=== PATIENT | female | born 1950 | race African-American/Black ===

== ENCOUNTER 2017-04-05 15:59 | Emergency (ER) | payer MEDICARE ==
[2017-04-05] MEDS ORDERED: RIVAROXABAN 15 MG TABLET PO ONE ×2 (16:43→18:22)
--- NOTE | 2017-04-05 16:44 | ER Document Report ---
ED Medical Screen (RME) - General Chief Complaint: Chest Pain > 30 Stated Complaint: CHEST PAIN Time Seen by Provider: 04/05/17 16:41 Notes: Patient presents with chest pain and shortness of breath. She states she has been unable to afford her Xarelto for the last 2 weeks. 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 She also states that she has chronic A. fib. TRAVEL OUTSIDE OF THE [place] IN LAST 30 DAYS: No - Related Data Allergies/Adverse Reactions: Sulfa (Sulfonamide Antibiotics) Allergy (Verified 04/05/17 16:01) Past Medical History - Past Medical History Cardiac Medical History: Reports: Hx Atrial Fibrillation Renal/ Medical History: Denies: Hx Peritoneal Dialysis Physical Exam - Vital signs Vitals: Temp Pulse Resp BP Pulse Ox 98.1 F 66 16 158/74 H 96 04/05/17 16:21 04/05/17 16:21 04/05/17 16:21 04/05/17 16:21 04/05/17 16:21 Course - Vital Signs Vital signs: Temp Pulse Resp BP Pulse Ox 98.1 F 66 16 158/74 H 96 04/05/17 16:21 04/05/17 16:21 04/05/17 16:21 04/05/17 16:21 04/05/17 16:21
[2017-04-05 17:53] LABS: HEMATOCRIT 45.1 % (36.0-47.0); HGB HCT DIFFERENCE -0.1; MEAN CORPUSCULAR HEMOGLOBIN 29.8 pg (27.0-33.4); MEAN CORPUSCULAR HGB CONC 33.2 g/dL (32.0-36.0); MEAN CORPUSCULAR VOLUME 90 fl (80-97); RED BLOOD COUNT 5.02 10^6/uL (3.72-5.28); WHITE BLOOD COUNT 11.5 10^3/uL (4.0-10.5)
[2017-04-05 18:19] LABS: ABSOLUTE EOSINOPHILS# (MANUAL) 0.2 10^3/uL (0.0-0.6); BASOPHILS % (MANUAL) 0 % (0-2); EOSINOPHILS % (MANUAL) 2 % (0-6); LYMPHOCYTES % (MANUAL) 23 % (13-45); TOTAL CELLS COUNTED 100
[2017-04-05 18:45] LABS: OVALOCYTES SLIGHT
[2017-04-05 18:46] LABS: ACANTHOCYTES 2+; TEAR DROP CELLS SLIGHT
--- NOTE | 2017-04-05 18:50 | ER Document Report ---
ED General - General Chief Complaint: Chest Pain > 30 Stated Complaint: CHEST PAIN Time Seen by Provider: 04/05/17 16:41 Notes: Patient is a 67-year-old female with a past medical history of hypertension, A. fib, and prior pulmonary embolus who is supposed to be anticoagulated on Xarelto but has been off medication for 2 weeks due to inability to pay the coinsurance for this medication who presents with an episode of chest pain that occurred several hours prior to arrival. Patient describes it as a pressure- like sensation in the left side of her chest that radiated into her left neck. The pain lasted for approximately 2 minutes and then spontaneously resolved. She denies any associated nausea, vomiting, diaphoresis but states that at the time she had some mild shortness of breath. She denies any prior history of cardiac disease or known coronary artery disease. She has not seen her primary doctor regarding today's concerns. She denies any discomfort at the time of my assessment. TRAVEL OUTSIDE OF THE [place] IN LAST 30 DAYS: No - Related Data Allergies/Adverse Reactions: Sulfa (Sulfonamide Antibiotics) Allergy (Verified 04/05/17 16:01) Past Medical History - General Information source: Patient - Social History Smoking Status: Never Smoker Frequency of alcohol use: None Drug Abuse: None Lives with: Family Family History: Reviewed & Not Pertinent Patient has suicidal ideation: No Patient has homicidal ideation: No - Past Medical History Cardiac Medical History: Reports: Hx Atrial Fibrillation Renal/ Medical History: Denies: Hx Peritoneal Dialysis Review of Systems - Review of Systems Notes: Constitutional: Negative for fever. HENT: Negative for sore throat. Eyes: Negative for visual changes. Cardiovascular: Positive for chest pain. Respiratory: Positive for shortness of breath. Gastrointestinal: Negative for abdominal pain, vomiting or diarrhea. Genitourinary: Negative for dysuria. Musculoskeletal: Negative for back pain. Skin: Negative for rash. Neurological: Negative for headaches, weakness or numbness. 10 point ROS negative except as marked above and in HPI. Physical Exam - Vital signs Vitals: Temp Pulse Resp BP Pulse Ox 98.1 F 66 16 158/74 H 96 04/05/17 16:21 04/05/17 16:21 04/05/17 16:21 04/05/17 16:21 04/05/17 16:21 Interpretation: Normal Notes: PHYSICAL EXAMINATION: GENERAL: Well-appearing, well-nourished and in no acute distress. HEAD: Atraumatic, normocephalic. EYES: Pupils equal round and reactive to light, extraocular movements intact, sclera anicteric, conjunctiva are normal. ENT: nares patent, oropharynx clear without exudates. Moist mucous membranes. NECK: Normal range of motion, supple without lymphadenopathy LUNGS: Breath sounds clear to auscultation bilaterally and equal. No wheezes rales or rhonchi. HEART: Regular rate and rhythm without murmurs ABDOMEN: Soft, nontender, normoactive bowel sounds. No guarding, no rebound. No masses appreciated. EXTREMITIES: Normal range of motion, no pitting or edema. No cyanosis. NEUROLOGICAL: No focal neurological deficits. Moves all extremities spontaneously and on command. PSYCH: Normal mood, normal affect. SKIN: Warm, Dry, normal turgor, no rashes or lesions noted. Course - Re-evaluation Re-evalutation: 04/05/17 18:48 Presentation of chest pain in an otherwise well appearing patient. Low clinical suspicion for ACS given clinical history, exam, EKG without ST elevations or depressions, and negative initial troponin. Chest pain lasted less than 2 minutes and then spontaneously resolved. Patient is chest pain-free at time of assessment has not had chest pain in approximately 6 hours. PE is on the differential given the patient does have a history of this and is unfortunately off of her Xarelto due to the cost of this medication for the past 2 weeks. I have restarted her Xarelto here and I do not believe obtaining a CT is indicated because regardless of whether or not the patient has a PE she requires anticoagulation and is otherwise hemodynamically stable. I also consulted social work to assist the patient in getting her medications. CXR without evidence of pneumothorax or pneumonia. No widened mediastinum. Aortic dissection also seems unlikely given history, symmetric pulses, CXR, and vitals. At this time will discharge with return precautions and follow-up recommendations. Verbal discharge instructions given a the bedside and opportunity for questions given. Medication warnings reviewed. Patient is in agreement with this plan and has verbalized understanding of return precautions and the need for primary care follow-up in the next 24-72 hours. - Vital Signs Vital signs: Temp Pulse Resp BP Pulse Ox 97.6 F 66 18 144/84 H 96 04/05/17 19:27 04/05/17 19:27 04/05/17 19:27 04/05/17 19:27 04/05/17 19:27 - Laboratory Result Diagrams: 04/05/17 17:28 04/05/17 18:20 Laboratory results interpreted by me: 04/05/17 04/05/17 17:28 18:20 WBC 11.5 H Carbon Dioxide 33 H BUN 30 H Creatinine 1.39 H Est GFR ( Amer) 46 L Est GFR (Non-Af Amer) 38 L - Diagnostic Test Radiology reviewed: Image reviewed, Reports reviewed Radiology results interpreted by me: 04/05/17 19:49 Chest x-ray: No acute infiltrate or pneumothorax - EKG Interpretation by Me Additional EKG results interpreted by me: 04/05/17 19:49 Sinus rhythm. Rate 70. No ST elevations or depressions. No evidence of right heart strain. QTC is 450. Discharge - Discharge Clinical Impression: Chest discomfort, History of venous thromboembolism, Intermittent shortness of breath Condition: Good Disposition: HOME, SELF-CARE Additional Instructions: You were seen today for chest pain. The exact cause of your pain is unclear. However, based on your cardiac enzyme testing, chest x-ray, and EKG it does not appear that it is from an immediately life-threatening cause at this time. Although your testing here is normal is critical that you follow-up with your primary care physician for continued evaluation of this chest pain and possible stress testing. I recommended you see your physician within the next 24-48 hours to be evaluated for consideration of a stress test. Please return to emergency department immediately if you have worsening of your chest pain, shortness of breath, vomiting, become unable to exert yourself due to pain or difficulty breathing, you pass out, or have any pain that radiates into your arms, jaw, or back. Please also return if you have any additional symptoms that are concerning to you. Please follow-up with her social media intern regarding getting your Xarelto filled as you do need this medication to prevent recurrent pulmonary emboli as well as for your history of atrial fibrillation. Referrals: MAURICIO SANFORD MD [Primary Care Provider] - Follow up in 3-5 days
[2017-04-05] MEDS ORDERED: NORMAL SALINE 1000 ML 1,000 ML IV ONE (18:59)
[2017-04-05 19:10] LABS: ALANINE AMINOTRANSFERASE 50 U/L (9-52); ALBUMIN 4.3 g/dL (3.5-5.0); ALKALINE PHOSPHATASE 121 U/L (38-126); ANION GAP 12 (5-19); ASPARTATE AMINO TRANSFERASE 35 U/L (14-36); BILIRUBIN,DIRECT 0.3 mg/dL (0.0-0.4); BILIRUBIN,TOTAL 0.5 mg/dL (0.2-1.3); BLOOD UREA NITROGEN 30 mg/dL (7-20); CALCIUM 9.8 mg/dL (8.4-10.2); CARBON DIOXIDE 33 mmol/L (22-30); CHLORIDE 99 mmol/L (98-107); CREATININE RESULT 1.39 mg/dL (0.52-1.25); GLUCOSE 93 mg/dL (75-110); SODIUM 144.3 mmol/L (137-145); TOTAL PROTEIN 7.2 g/dL (6.3-8.2)
[2017-04-05 19:29] VITALS: BP 144/84
[2017-04-05] MEDS ORDERED: RIVAROXABAN 10 MG TABLET PO ONE (19:30)
--- NOTE | 2017-04-05 19:35 | EKG REPORT ---
SEVERITY:- ABNORMAL ECG - SINUS RHYTHM LEFT AXIS DEVIATION PROBABLE LEFT VENTRICULAR HYPERTROPHY : Confirmed by: Les Fortune MD 05-Apr-2017 19:35:18
--- NOTE | 2017-04-05 19:44 | RADIOLOGY REPORT (SQ) ---
EXAM DESCRIPTION: CHEST SINGLE VIEW COMPLETED DATE/TIME: 04/05/2017 7:09 pm REASON FOR STUDY: chest pain COMPARISON: None. NUMBER OF VIEWS: One view. TECHNIQUE: Single frontal radiographic view of the chest acquired. LIMITATIONS: None. FINDINGS: LUNGS AND PLEURA: No opacities, masses or pneumothorax. No pleural effusion. MEDIASTINUM AND HILAR STRUCTURES: No masses. Contour normal. HEART AND VASCULAR STRUCTURES: Heart enlarged without failure. Normal vasculature. BONES: No acute findings. HARDWARE: Hardware in the cervical spine. OTHER: No other significant finding. IMPRESSION: HEART ENLARGED WITHOUT FAILURE. NO OTHER SIGNIFICANT RADIOGRAPHIC FINDING IN THE CHEST. TECHNICAL DOCUMENTATION: JOB ID: [id number] [email or web address]- All Rights Reserved
== END 2017-04-05 20:08 | disposition home or self-care (01) ==
LOC: ER 15:59
DX: R07.89 Other chest pain (principal); R06.02 Shortness of breath; I48.91 Unspecified atrial fibrillation; T45.516A Underdosing of anticoagulants, initial encounter; Z91.120 Patient's intentional underdosing of medication regimen due to financial hardship; Z91.14 Patient's other noncompliance with medication regimen; Z86.711 Personal history of pulmonary embolism; Z88.2 Allergy status to sulfonamides
CPT/HCPCS: 93005; 99285; 96360; 36415; 85025; 80053; 84484; 71010; 93010; J7030; A9270

== ENCOUNTER 2017-06-17 12:04 | Emergency (ER) | payer MEDICARE ==
[2017-06-17] MEDS ORDERED: HYDROMORPHONE HCL INJ/PF 2 MG/ML AMPULE IV ONE ×2 (12:18→13:07)
--- NOTE | 2017-06-17 12:58 | RADIOLOGY REPORT (SQ) ---
EXAM DESCRIPTION: SHOULDER LEFT 2 OR MORE VIEWS COMPLETED DATE/TIME: 06/17/2017 12:47 pm REASON FOR STUDY: fall on concrete, pain COMPARISON: None. NUMBER OF VIEWS: Three views. TECHNIQUE: AP and Y view images acquired of the left shoulder. LIMITATIONS: None. FINDINGS: MINERALIZATION: Normal. BONES: There is a comminuted fracture of the proximal humerus at the level of the humeral neck and gr eater tuberosity. No other evidence for fracture is seen. JOINTS: No dislocation. VISUALIZED LUNGS AND RIBS: No pneumothorax. No rib fracture. SOFT TISSUES: No radiopaque foreign body. OTHER: No other significant finding. IMPRESSION: Comminuted fracture of the proximal humerus. TECHNICAL DOCUMENTATION: JOB ID: [id number] [employer]- All Rights Reserved Reading location - IP/workstation name: [email or web address]
--- NOTE | 2017-06-17 12:59 | RADIOLOGY REPORT (SQ) ---
EXAM DESCRIPTION: CHEST SINGLE VIEW COMPLETED DATE/TIME: 06/17/2017 12:47 pm REASON FOR STUDY: fall on concrete, pain COMPARISON: 04/05/2017 EXAM PARAMETERS: NUMBER OF VIEWS: One view. TECHNIQUE: Single frontal radiographic view of the chest acquired. RADIATION DOSE: NA LIMITATIONS: None. FINDINGS: LUNGS AND PLEURA: No opacities, masses or pneumothorax. No pleural effusion. MEDIASTINUM AND HILAR STRUCTURES: No masses. Contour normal. HEART AND VASCULAR STRUCTURES: Cardiac silhouette remains enlarged and is unchanged in configuration BONES: Previously described left shoulder fracture is incompletely visualized. HARDWARE: Orthopedic hardware is again identified in the cervical spine OTHER: No other significant finding. IMPRESSION: No acute consolidations or pleural effusions are identified. Cardiomegaly. Other findi ngs as noted above TECHNICAL DOCUMENTATION: JOB ID: [id number] [employer]- All Rights Reserved Reading location - IP/workstation name: [email or web address]
--- NOTE | 2017-06-17 13:22 | RADIOLOGY REPORT (SQ) ---
EXAM DESCRIPTION: CT CERVICAL SPINE WITHOUT COMPLETED DATE/TIME: 06/17/2017 12:57 pm REASON FOR STUDY: fall on concrete, pain COMPARISON: None. TECHNIQUE: Axial images acquired through the cervical spine without intravenous contrast. Images re viewed with lung, soft tissue and bone windows. Reconstructed coronal and sagittal MPR images review ed. Images stored on PACS. All CT scanners at this facility use dose modulation, iterative reconstruction, and/or weight based d osing when appropriate to reduce radiation dose to as low as reasonably achievable (ALARA). [facility]: Dose Right [facility]: CareDose [facility]: Dose Right [facility]: Teradose 4D [facility]: [employer] RADIATION DOSE: CT Rad equipment meets quality standard of care and radiation dose reduction techniq ues were employed. CTDIvol: 27.7 mGy. DLP: 688 mGy-cm. mGy. LIMITATIONS: Streak artifact from hardware C4-5 and 6 FINDINGS: ALIGNMENT: Anatomic. MINERALIZATION: Normal. VERTEBRAL BODIES: No obvious acute fracture identified. DISCS: Arthritic changes. FACETS, LATERAL MASSES, POSTERIOR ELEMENTS: Intact. Arthritic changes. HARDWARE: Intact anterior hardware bridging C4-5 and 6 VISUALIZED RIBS: No fractures. LUNG APICES AND SOFT TISSUES: No significant or acute findings. OTHER: No other significant finding. IMPRESSION: No acute fractures. Arthritic changes seen. Anterior Hardware bridges C4-5 and 6. TECHNICAL DOCUMENTATION: JOB ID: [id number] Quality ID # [id number]: Final reports with documentation of one or more dose reduction techniques (e.g., Au tomated exposure control, adjustment of the mA and/or kV according to patient size, use of iterative reconstruction technique) 2010 [employer]- All Rights Reserved Reading location - IP/workstation name: [email or web address]
--- NOTE | 2017-06-17 13:30 | ER Document Report ---
ED Trauma/MVC - General Chief Complaint: Fall Injury Stated Complaint: FALL SHOULDER AND RIB PAIN Time Seen by Provider: 06/17/17 12:13 Mode of Arrival: Medic Information source: Patient Notes: Patient is a 67-year-old female who presents to the ER today for left shoulder pain, chest pain after a fall at a gas station when she slipped on a rug leaving the gas station. Patient states that she landed on concrete directly onto the left shoulder. She denies any numbness or tingling at this time, she denies falling onto her chest at all. TRAVEL OUTSIDE OF THE [place] IN LAST 30 DAYS: No - Related Data Allergies/Adverse Reactions: Sulfa (Sulfonamide Antibiotics) Allergy (Verified 04/05/17 16:01) Past Medical History - General Information source: Patient - Social History Smoking Status: Unknown if Ever Smoked Family History: Reviewed & Not Pertinent - Past Medical History Cardiac Medical History: Reports: Hx Atrial Fibrillation Renal/ Medical History: Denies: Hx Peritoneal Dialysis Review of Systems - Review of Systems Constitutional: No symptoms reported EENT: No symptoms reported Cardiovascular: No symptoms reported Respiratory: No symptoms reported Gastrointestinal: No symptoms reported Genitourinary: No symptoms reported Female Genitourinary: No symptoms reported Musculoskeletal: See HPI Skin: No symptoms reported Hematologic/Lymphatic: No symptoms reported Neurological/Psychological: No symptoms reported Physical Exam - Vital signs Vitals: Temp Pulse Resp BP Pulse Ox 97.6 F 87 22 H 175/115 H 95 06/17/17 12:11 06/17/17 12:11 06/17/17 12:11 06/17/17 12:11 06/17/17 12:11 - Notes Notes: PHYSICAL EXAMINATION: GENERAL: Moaning and crying in pain, and mild acute distress. HEAD: Atraumatic, normocephalic. EYES: Pupils equal round and reactive to light, extraocular movements intact, sclera anicteric, conjunctiva are normal. NECK: Normal range of motion, supple without lymphadenopathy LUNGS: CTAB and equal. No wheezes rales or rhonchi. HEART: Chest tender to palpation, Regular rate and rhythm without murmurs ABDOMEN: Soft, no tenderness. No guarding, no rebound BACK: no vertebral tenderness, normal ROM GI/: no CVA tenderness EXTREMITIES: limited ROM to right arm at shoulder, tender to palpation over anterior/posterior shoulder, no pitting edema. No cyanosis. NEUROLOGICAL: Cranial nerves grossly intact. Normal sensory/motor exams. PSYCH: Normal mood, normal affect. SKIN: Warm, Dry, normal turgor, no rashes or lesions noted Course - Re-evaluation Re-evalutation: 06/17/17 16:03 Patient has a comminuted fracture of the proximal humerus on x-ray today. Chest x-ray, cervical spine CT negative for any acute pathology. 06/17/17 16:06 Attending and I do not appreciate fracture of humerus on x ray, but pt was placed in shoulder immobilizer and given orthopedic surgeon followup for first thing next business day. send home with pain medication. doing much better after dilaudid here. - Vital Signs Vital signs: Temp Pulse Resp BP Pulse Ox 97.5 F 63 17 151/66 H 100 06/17/17 14:02 06/17/17 14:02 06/17/17 14:02 06/17/17 14:02 06/17/17 14:02 Discharge - Discharge Clinical Impression: Proximal humeral fracture Qualifiers: Encounter type: initial encounter Fracture type: closed Fracture morphology: unspecified fracture morphology Laterality: left Qualified Code(s): S42.202A - Unspecified fracture of upper end of left humerus, initial encounter for closed fracture Condition: Stable Disposition: HOME, SELF-CARE Additional Instructions: Return immediately for any new or worsening symptoms. Follow up with orthopedic surgeon, call tomorrow to make followup appointment. Prescriptions: Oxycodone HCl/Acetaminophen [Percocet 5-325 mg Tablet] 1 - 2 tab PO Q4H PRN #25 tablet PRN Reason: Referrals: ELAINA SANFORD MD [Primary Care Provider] - Follow up as needed LAUREN DE JESUS DO [ACTIVE STAFF] - Follow up as needed
[2017-06-17 14:03] VITALS: BP 151/66
== END 2017-06-17 13:55 | disposition home or self-care (01) ==
LOC: ER 12:04
DX: S42.202A Unspecified fracture of upper end of left humerus, initial encounter for closed fracture (principal); M25.512 Pain in left shoulder; R07.81 Pleurodynia; W01.0XXA Fall on same level from slipping, tripping and stumbling without subsequent striking against object, initial encounter; Y92.524 Gas station as the place of occurrence of the external cause
CPT/HCPCS: 96376; 99284; 96374; 71045; 73030; 72125; J1170

== ENCOUNTER 2017-07-07 11:19 | Observation (INO) | payer MEDICARE ==
[2017-07-06 13:10] LABS: APPEARANCE,URINE CLEAR; BILIRUBIN,URINE NEGATIVE (NEGATIVE); COLOR,URINE STRAW; GLUCOSE, URINE NEGATIVE (NEGATIVE); KETONES,URINE NEGATIVE (NEGATIVE); LEUKOCYTE ESTERASE,URINE NEGATIVE (NEGATIVE); NITRITE,URINE NEGATIVE (NEGATIVE); PROTEIN,URINE NEGATIVE (NEGATIVE); URINE SPECIFIC GRAVITY 1.006; UROBILINOGEN,URINE NEGATIVE mg/dL (<2.0)
[2017-07-06 13:51] LABS: HEMATOCRIT 45.6 % (36.0-47.0); HEMOGLOBIN 14.8 g/dL (12.0-15.5); MEAN CORPUSCULAR HEMOGLOBIN 29.1 pg (27.0-33.4); MEAN CORPUSCULAR HGB CONC 32.5 g/dL (32.0-36.0); MEAN CORPUSCULAR VOLUME 90 fl (80-97); PLATELET COUNT 305 10^3/uL (150-450); RED BLOOD COUNT 5.08 10^6/uL (3.72-5.28); RED CELL DISTRIBUTION WIDTH 14.2 % (11.5-14.0); WHITE BLOOD COUNT 9.5 10^3/uL (4.0-10.5)
[2017-07-06 14:10] LABS: ANION GAP 13 (5-19); BLOOD UREA NITROGEN 33 mg/dL (7-20); CALCIUM 10.6 mg/dL (8.4-10.2); CARBON DIOXIDE 34 mmol/L (22-30); CHLORIDE 95 mmol/L (98-107); GLUCOSE 104 mg/dL (75-110); POTASSIUM 4.1 mmol/L (3.6-5.0); SODIUM 142.4 mmol/L (137-145)
[2017-07-06 14:20] LABS: ABSOLUTE MONOCYTES # (MANUAL) 0.8 10^3/uL (0.1-1.4); ABSOLUTE NEUTROPHILS# (MANUAL) 6.5 10^3/uL (1.7-8.2); BASOPHILS % (MANUAL) 1 % (0-2); EOSINOPHILS % (MANUAL) 2 % (0-6); LYMPHOCYTES % (MANUAL) 19 % (13-45); MONOCYTES % (MANUAL) 8 % (3-13); SEGMENTED NEUTROPHILS % (MAN) 68 % (42-78); TOTAL CELLS COUNTED 100
[2017-07-06 14:21] LABS: ANISOCYTOSIS SLIGHT; PLATELET CLUMPS PRESENT; TOXIC VACUOLATION PRESENT
[2017-07-06 14:23] LABS: OVALOCYTES SLIGHT; POIKILOCYTOSIS SLIGHT; POLYCHROMASIA SLIGHT; SCHISTOCYTES SLIGHT
--- NOTE | 2017-07-06 15:00 | RADIOLOGY REPORT (SQ) ---
EXAM DESCRIPTION: CHEST PA/LATERAL COMPLETED DATE/TIME: 07/06/2017 1:26 pm REASON FOR STUDY: PRE OP COMPARISON: AP chest 06/17/2017, 04/05/2017 EXAM PARAMETERS: NUMBER OF VIEWS: two views TECHNIQUE: Digital Frontal and Lateral radiographic views of the chest acquired. RADIATION DOSE: NA LIMITATIONS: none FINDINGS: LUNGS AND PLEURA: No opacities, masses or pneumothorax. No pleural effusion. MEDIASTINUM AND HILAR STRUCTURES: No masses or contour abnormalities. HEART AND VASCULAR STRUCTURES: Heart normal size. No evidence for failure. BONES: Osteopenic. No acute findings HARDWARE: Surgical clips left upper quadrant along the stomach fundus OTHER: No other significant finding. IMPRESSION: No acute findings TECHNICAL DOCUMENTATION: JOB ID: [id number] [email or web address]- All Rights Reserved Reading location - IP/workstation name: [email or web address]
--- NOTE | 2017-07-06 22:59 | EKG REPORT ---
SEVERITY:- ABNORMAL ECG - SINUS RHYTHM NONSPECIFIC INTRAVENTRICULAR CONDUCTION DELAY LEFT VENTRICULAR HYPERTROPHY : Confirmed by: Carolina Jaramillo 06-Jul-2017 22:58:10
[~2017-07-07 11:19] MED LIST: CEFAZOLIN 2 GM/D5W RTU 2 GM/50 ML RTUPB IV PRN
[2017-07-07] MEDS ORDERED: DEXAMETHASONE SOD PHOSPHATE INJ 4 MG/1 ML VIAL ONE (13:03)
[2017-07-07] MEDS ORDERED: ROCURONIUM BROMIDE INJ 50 MG/5 ML VIAL IV ONE (13:03)
[2017-07-07] MEDS ORDERED: SUCCINYLCHOLINE CHLORIDE INJ 200 MG/10 ML VIAL ONE (13:03)
[2017-07-07] MEDS ORDERED: ONDANSETRON HCL INJ/PF 4 MG/2 ML SDV ONE (13:03)
[2017-07-07] MEDS ORDERED: GLYCOPYRROLATE INJ 0.4 MG/2 ML VIAL ONE (13:03)
[2017-07-07] MEDS ORDERED: NEOSTIGMINE METHYLSULFATE 10 MG/10 ML VIAL ONE (13:03)
[2017-07-07] MEDS ORDERED: LIDOCAINE 2% INJ-PF (20 MG/ML) 2 ML AMPUL ONE (13:03)
[2017-07-07 14:42] LABS: INTERNATIONAL RATION (INR) 0.96; PARTIAL THROMBOPLASTIN TIME 22.3 SEC (23.5-35.8); PROTHROMBIN TIME 13.5 SEC (11.4-15.4)
[2017-07-07] MEDS ORDERED: FENTANYL CITRATE INJ/PF 100 MCG/2 ML AMPUL ONE (15:04)
[2017-07-07] MEDS ORDERED: MIDAZOLAM 2 MG/2 ML INJ ONE ×2 (15:04→18:29)
[2017-07-07] MEDS ORDERED: FENTANYL CITRATE INJ/PF 250 MCG/5 ML AMPULE ONE (15:04)
[2017-07-07] MEDS ORDERED: ACETAMINOPHEN 100 ML IV ONE (15:05)
[2017-07-07] MEDS ORDERED: PROPOFOL INJ 200 MG/20 ML VIAL IV ONE (15:05)
[2017-07-07] MEDS ORDERED: BUPIVACAINE HCL 0.5%-EPI 1:200000 INJ/PF 30 ML VIAL ONE (16:29)
[2017-07-07] MEDS ORDERED: MEPERIDINE HCL/PF INJ 25 MG/1 ML DISP.SYRIN IV PRN (16:54)
[2017-07-07] MEDS ORDERED: MORPHINE SULFATE 10 MG/ML INJ IV PRN (16:54)
[2017-07-07] MEDS ORDERED: DIPHENHYDRAMINE HCL 50 MG/ML VIAL IV PRN (16:54)
[2017-07-07] MEDS ORDERED: PROMETHAZINE HCL INJ 25 MG/1 ML VIAL IV PRN (16:54)
[2017-07-07] MEDS ORDERED: FENTANYL CITRATE INJ/PF 100 MCG/2 ML AMPUL IV PRN ×3 (16:54)
--- NOTE | 2017-07-07 18:26 | Operative Report ---
Operative Report DATE OF SURGERY: 07/07/17 PREOPERATIVE DIAGNOSIS: Left displaced proximal humerus fracture POSTOPERATIVE DIAGNOSIS: Same OPERATION: ORIF of left proximal humerus fracture SURGEON: BETTY WASHBURN ANESTHESIA: GA TISSUE REMOVED OR ALTERED: None COMPLICATIONS: None ESTIMATED BLOOD LOSS: 100 mL INTRAOPERATIVE FINDINGS: As above PROCEDURE: Patient was brought to the operating room and after being intubated was placed in a beachchair position. The left upper extremity was prepped and draped in a normal sterile surgical fashion. Timeout was done identifying the left shoulder is a correct site. Quarter percent Marcaine with epinephrine was injected in the anticipated surgical site. A 10 blade was used then to do a skin incision and a standard deltopectoral approach was done to the humerus. Once we were able to split the deltoid and pec interval were able to identify the cephalic vein and then retracted medially. We would then expose the cyst subscapularis tendon and the biceps. I split the inferior portion of the subscapularis tendon to access the fracture. I split it with the fibers so with incision was horizontal open nature. I was able also to use an osteotome to go through the tuberosity fracture and I was able to free the humeral head for reduction. Used a ball hook to pull the shaft medially and then proceeded to place a plate and hold it with the K wires. While holding the reduction I was able to place a screw in the shaft in the oblong hole to hold the reduction temporarily. Once I was satisfied with the reduction I proceeded then to place my 4 locking screws in the humeral head and then my 3 shaft screws after that. Make sure that the screws were measured with a depth gauge and confirmed with the C arm. Once I completed the fixation and place our screws I took internal, external, lateral views of the plate and humerus and show that the fixation holding and moving as one unit. Once I was satisfied with the fixation and then I reapproximated the split in the subscapularis tendon using 0 Vicryl. The deltopectoral interval was then reapproximated with 0 Vicryl and then the subcutaneous tissue was approximated with the 0 Vicryl as well. 2-0 Vicryl was used for the approximation of the dermal layer and then afua for skin. Bulb irrigation was done prior to closure. Xeroform 4 x 4 dressing and then Medipore tape was applied and drapes were removed. Patient was placed in a sling and then placed in supine position where she was extubated and then transferred to PACU in a stable condition.
--- NOTE | 2017-07-07 18:30 | Discharge Summary ---
Discharge Summary (SDC) - Discharge Final Diagnosis: ORIF of left proximal humerus fracture Date of Surgery: 07/07/17 Discharge Date: 07/07/17 Condition: Good Treatment or Instructions: Patient is instructed to follow up in 10-14 days. Patient instructed to remove dressing in 4 days then can shower and apply Band- Aids as needed. Patient to wear sling for comfort but okay to remove for shower and pendulum exercises. Pendulum exercises are instructed to be done 3 times a day ideally with breakfast, lunch, dinners and showers. Patient instructed to call if there is any signs of redness or drainage fevers or chills. Prescriptions: Oxycodone HCl/Acetaminophen [Percocet 7.5-325 mg Tablet] 1 - 2 tab PO ASDIR PRN #60 tab PRN Reason: Referrals: BETTY NORMAN MD [ACTIVE STAFF] - Discharge Diet: As Tolerated Respiratory Treatments at Home: Deep Breathing/Coughing Discharge Activity: No Driving, No Lifting/Push/Pulling, Slowly Increase Activity, Walk Frequently Home Care Assistance: None Needed Report the Following to Your Physician Immediately: Shortness of Breath, Vomiting, Increase in Pain, Fever over 101 Degrees, Unusual Bleeding, Redness, Swelling, Warmth, Increased Soreness, Drainage-Yellow, Drainage-Scott, Drainage- Green, Increased Vaginal Bleed
[2017-07-07] MEDS ORDERED: OXYCODONE-ACETAMINOPHEN 5-325 MG TABLET PO PRN ×2 (18:31)
[2017-07-07] MEDS: FENTANYL CITRATE INJ/PF 100 MCG/2 ML AMPUL ONE ×2 (18:31→18:46)
[2017-07-07] MEDS ORDERED: OXYCODONE-ACETAMINOPHEN 5-325 MG TABLET ONE (18:33)
[2017-07-07] MEDS ORDERED: OXYCODONE HCL IR 5 MG TABLET PO PRN ×2 (19:17→19:19)
[2017-07-07] MEDS ORDERED: RINGERS SOLUTION,LACTATED 1,000 ML IV PRN (19:53)
[2017-07-07] MEDS: OXYCODONE-ACETAMINOPHEN 5-325 MG TABLET PO PRN (20:13)
[2017-07-07] MEDS ORDERED: MORPHINE SULFATE 10 MG/ML INJ IV ONE (20:30)
[2017-07-07] MEDS ORDERED: OXYCODONE-ACETAMINOPHEN 5-325 MG TABLET PO ONE (20:30)
[2017-07-08] MEDS: OXYCODONE-ACETAMINOPHEN 5-325 MG TABLET PO PRN ×4 (00:03→11:42)
[2017-07-08] MEDS: OXYCODONE HCL IR 5 MG TABLET PO PRN ×3 (00:03→11:42)
[2017-07-08 04:49] VITALS: BP 115/68
--- NOTE | 2017-07-08 10:05 | RADIOLOGY REPORT (SQ) ---
EXAM DESCRIPTION: HUMERUS LEFT; NO CHG FLUORO COMPLETED DATE/TIME: 07/07/2017 7:49 pm REASON FOR STUDY: ORIF LEFT PROXIMAL HUMERUS S42.A UNSP FRACTURE OF UPPER END OF LEFT HUMERUS, I NIT FO COMPARISON: 06/17/2017. FLUOROSCOPY TIME: Fluoro time 0.9 minutes. 5 images saved to PACS. TECHNIQUE: Intra-operative images acquired during surgical procedure to evaluate progress. NUMBER OF IMAGES: 5 LIMITATIONS: None. FINDINGS: Images reveal open reduction internal fixation of proximal humerus fracture with grossly a natomic alignment. IMPRESSION: IMAGE(S) OBTAINED DURING PROCEDURE. COMMENT: Quality ID [id number]: Final reports for procedures using fluoroscopy that document radiation exp osure indices, or exposure time and number of fluorographic images (if radiation exposure indices are not available) Please consult full operative report of the attending physician for description of the procedure. TECHNICAL DOCUMENTATION: JOB ID: [id number] [employer]- All Rights Reserved Reading location - IP/workstation name: [email or web address]
--- NOTE | 2017-07-08 10:05 | RADIOLOGY REPORT (SQ) ---
EXAM DESCRIPTION: HUMERUS LEFT; NO CHG FLUORO COMPLETED DATE/TIME: 07/07/2017 7:49 pm REASON FOR STUDY: ORIF LEFT PROXIMAL HUMERUS S42.A UNSP FRACTURE OF UPPER END OF LEFT HUMERUS, I NIT FO COMPARISON: 06/17/2017. FLUOROSCOPY TIME: Fluoro time 0.9 minutes. 5 images saved to PACS. TECHNIQUE: Intra-operative images acquired during surgical procedure to evaluate progress. NUMBER OF IMAGES: 5 LIMITATIONS: None. FINDINGS: Images reveal open reduction internal fixation of proximal humerus fracture with grossly a natomic alignment. IMPRESSION: IMAGE(S) OBTAINED DURING PROCEDURE. COMMENT: Quality ID [id number]: Final reports for procedures using fluoroscopy that document radiation exp osure indices, or exposure time and number of fluorographic images (if radiation exposure indices are not available) Please consult full operative report of the attending physician for description of the procedure. TECHNICAL DOCUMENTATION: JOB ID: [id number] [email or web address]- All Rights Reserved Reading location - IP/workstation name: [email or web address]
== END 2017-07-08 12:10 | disposition home or self-care (01) ==
LOC: OROUT 13:24 → 4S 13:24 → EDSTATUS 15:45 → OROUT 19:23 → 4S 19:23 → OROUT 07-08 12:10 → 4S 07-08 12:10
PROVIDERS: ADMIT Orthopaedic Surgery; ATTEND Orthopaedic Surgery
PROC: 0RSK04Z Reposition Left Shoulder Joint with Internal Fixation Device, Open Approach (ICD-10-PCS; principal; 2017-07-07 15:45)
DX: S42.202A Unspecified fracture of upper end of left humerus, initial encounter for closed fracture (principal); W18.09XA Striking against other object with subsequent fall, initial encounter; Y92.524 Gas station as the place of occurrence of the external cause; M19.90 Unspecified osteoarthritis, unspecified site; I10 Essential (primary) hypertension; I48.91 Unspecified atrial fibrillation; E66.9 Obesity, unspecified; Z96.659 Presence of unspecified artificial knee joint; Z98.890 Other specified postprocedural states; Z68.41 Body mass index [BMI] 40.0-44.9, adult
CPT/HCPCS: 23670; 93005; 36415 ×2; 85025; 85610; 85730; 80048; 81001; 71046; 73060; 93010; C1713 ×3; J2250; J3490 ×3; J1100; J3010 ×2; J2270; A9270 ×3; J0330; J2405; J2704; J0690; J0131; 01630

== ENCOUNTER 2017-08-05 20:50 | Emergency (ER) | payer MEDICARE ==
[2017-08-05] MEDS ORDERED: NORMAL SALINE 1000 ML 1,000 ML IV ONE ×2 (22:35→22:38)
[2017-08-05] MEDS ORDERED: CLINDAMYCIN 600 MG/D5W RTU 600 MG/50 ML RTUPB IV ONE (22:35)
--- NOTE | 2017-08-05 22:38 | ER Document Report ---
ED General - General Chief Complaint: Abnormal Lab Results Stated Complaint: ABDOMINAL PAIN Time Seen by Provider: 08/05/17 22:24 Mode of Arrival: Ambulatory Information source: Patient Notes: 67-year-old female history of hypertension bilateral knee replacements 15 years ago presents with complaints of receiving a call from her primary care office with concerns of kidney issues. 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 IN LAST 30 DAYS: No - HPI Onset: Just prior to arrival Onset/Duration: Sudden Quality of pain: No pain Severity: Mild Pain Level: Denies Associated symptoms: Weakness Exacerbated by: Denies Relieved by: Denies Similar symptoms previously: Yes Recently seen / treated by doctor: Yes - Related Data Allergies/Adverse Reactions: Sulfa (Sulfonamide Antibiotics) Allergy (Verified 07/07/17 15:23) Skin Redness BRAZIL NUT Allergy (Uncoded 07/06/17 11:42) Anaphylaxis Past Medical History - Social History Smoking Status: Never Smoker Cigarette use (# per day): No Chew tobacco use (# tins/day): No Smoking Education Provided: No Frequency of alcohol use: None Drug Abuse: None Family History: Reviewed & Not Pertinent Patient has suicidal ideation: No Patient has homicidal ideation: No - Past Medical History Cardiac Medical History: Reports: Hx Atrial Fibrillation, Hx Heart Attack - "MILD" 8 YRS AGO, Hx Hypertension Denies: Hx Coronary Artery Disease Pulmonary Medical History: Reports: Hx Asthma - H/O CHILD- PRN ALBUTEROL Denies: Hx Bronchitis, Hx COPD, Hx Pneumonia Neurological Medical History: Denies: Hx Cerebrovascular Accident, Hx Seizures Renal/ Medical History: Denies: Hx Peritoneal Dialysis Musculoskeltal Medical History: Reports Hx Arthritis Past Surgical History: Reports: Hx Orthopedic Surgery - shoulder left - Immunizations Hx Diphtheria, Pertussis, Tetanus Vaccination: No Hx Pneumococcal Vaccination: 04/18/15 Review of Systems - Review of Systems Notes: REVIEW OF SYSTEMS: CONSTITUTIONAL : Denies fever, chills, or sweats. Denies recent illness. EENT: Denies eye, ear, throat, or mouth pain or symptoms. Denies nasal or sinus congestion or discharge. Denies throat, tongue, or mouth swelling or difficulty swallowing. CARDIOVASCULAR: Denies chest pain. Denies palpitations or racing or irregular heart beat. Denies ankle edema. RESPIRATORY: Denies cough, cold, or chest congestion. Denies shortness of breath, difficulty breathing, or wheezing. GASTROINTESTINAL: Denies abdominal pain or distention. Denies nausea, vomiting , or diarrhea. Denies blood in vomitus, stools, or per rectum. Denies black, tarry stools. Denies constipation. GENITOURINARY: Denies difficulty urinating, painful urination, burning, frequency, blood in urine, or discharge. FEMALE GENITOURINARY: Denies vaginal bleeding, heavy or abnormal periods, irregular periods. Denies vaginal discharge or odor. MUSCULOSKELETAL: Denies back or neck pain or stiffness. Denies joint pain or swelling. SKIN: Admits to leg erythema HEMATOLOGIC : Denies easy bruising or bleeding. LYMPHATIC: Denies swollen, enlarged glands. NEUROLOGICAL: Denies confusion or altered mental status. Denies passing out or loss of consciousness. Denies dizziness or lightheadedness. Denies headache. Denies weakness or paralysis or loss of use of either side. Denies problems with gait or speech. Denies sensory loss, numbness, or tingling. Denies seizures. PSYCHIATRIC: Denies anxiety or stress. Denies depression, suicidal ideation, or homicidal ideation. ALL OTHER SYSTEMS REVIEWED AND NEGATIVE. PHYSICAL EXAMINATION: GENERAL: Well-appearing, well-nourished and in no acute distress. HEAD: Atraumatic, normocephalic. EYES: Pupils equal round and reactive to light, extraocular movements intact, conjunctiva are normal. ENT: Nares patent, oropharynx clear without exudates. Moist mucous membranes. NECK: Normal range of motion, supple without lymphadenopathy LUNGS: Breath sounds clear to auscultation bilaterally and equal. No wheezes rales or rhonchi. HEART: Regular rate and rhythm without murmurs ABDOMEN: Soft, nontender, nondistended abdomen. No guarding, no rebound. No masses appreciated. Female : deferred Musculoskeletal: Normal range of motion, no pitting or edema. No cyanosis. NEUROLOGICAL: Cranial nerves grossly intact. Normal speech, normal gait. Normal sensory, motor exams PSYCH: Normal mood, normal affect. SKIN: Mild erythema noted of the left anterior juares no significant warmth no calf tenderness no swelling pulses intact Dictation was performed using [employer] voice recognition software Physical Exam - Vital signs Vitals: Temp Pulse Resp BP Pulse Ox 97.7 F 68 18 168/78 H 94 08/05/17 21:31 08/05/17 21:31 08/05/17 21:31 08/05/17 21:31 08/05/17 21:31 Course - Re-evaluation Re-evalutation: 08/05/17 22:38 Patient has no history of congestive heart failure, I believe this is all secondary to dehydration and her medications, I will start her on IV fluids and antibiotics 08/06/17 00:41 cr 2.0, fluids running , patient states she feels well, i expect dc home 08/06/17 03:36 Patient's creatinine has improved to 1.75, after 2 L, she will be discharged home to continue oral hydration, she is already on antibiotics was given dose here does not need to follow-up today in the office but I would like her to follow-up on Tuesday for them to recheck the cellulitis and her creatinine After performing a Medical Screening Examination, I estimate there is LOW risk for ACUTE APPENDICITIS, BOWEL OBSTRUCTION, ACUTE CHOLECYSTITIS, PERFORATED DIVERTICULITIS, INCARCERATED HERNIA, PANCREATITIS, PELVIC INFLAMMATORY DISEASE, PERFORATED ULCER, ECTOPIC , or TUBO-OVARIAN ABSCESS, thus I consider the discharge disposition reasonable. Also, there is no evidence or peritonitis , sepsis, or toxicity. I have reevaluated this patient multiple times and no significant life threatening changes are noted. The patient and I have discussed the diagnosis and risks, and we agree with discharging home with close follow-up with the understanding that symptoms and presentations can change. We also discussed returning to the Emergency Department immediately if new or worsening symptoms occur. We have discussed the symptoms which are most concerning (e.g., bloody stool, fever, changing or worsening pain, vomiting) that necessitate immediate return. - Vital Signs Vital signs: Temp Pulse Resp BP Pulse Ox 97.7 F 68 14 137/72 H 96 08/05/17 21:31 08/05/17 21:31 08/06/17 02:00 08/06/17 01:01 08/06/17 02:00 - Laboratory Result Diagrams: 08/06/17 00:03 08/06/17 03:00 Laboratory results interpreted by me: 08/06/17 08/06/17 08/06/17 00:03 00:03 03:00 WBC 12.0 H RDW 14.6 H Potassium 3.2 L 3.3 L Chloride 97 L Carbon Dioxide 34 H BUN 56 H 51 H Creatinine 2.02 H 1.75 H Est GFR ( Amer) 30 L 35 L Est GFR (Non-Af Amer) 24 L 29 L Glucose 113 H 118 H AST 51 H 42 H ALT 58 H Alkaline Phosphatase 153 H Total Protein 6.0 L Albumin 3.4 L Discharge - Discharge Clinical Impression: Acute renal failure Qualifiers: Acute renal failure type: unspecified Qualified Code(s): N17.9 - Acute kidney failure, unspecified Cellulitis Qualifiers: Site of cellulitis: extremity Site of cellulitis of extremity: lower extremity Laterality: left Qualified Code(s): L03.116 - Cellulitis of left lower limb Condition: Stable Disposition: HOME, SELF-CARE Additional Instructions: Please return immediately if there are any other concerns Referrals: MAURICIO SANFORD MD [Primary Care Provider] - 08/08/17
[2017-08-06 00:18] LABS: ABSOLUTE BASOPHILS # (AUTO) 0.1 10^3/uL (0.0-0.2); ABSOLUTE EOSINOPHILS # (AUTO) 0.2 10^3/uL (0.0-0.6); ABSOLUTE LYMPHOCYTES (AUTO) 2.7 10^3/uL (0.5-4.7); ABSOLUTE MONOCYTES (AUTO) 0.9 10^3/uL (0.1-1.4); ABSOLUTE NEUT (AUTO) 8.2 10^3/uL (1.7-8.2); BASOPHILS % (AUTO) 0.5 % (0-2); EOSINOPHILS % (AUTO) 1.4 % (0-6); HEMATOCRIT 38.2 % (36.0-47.0); HEMOGLOBIN 12.3 g/dL (12.0-15.5); LYMPHOCYTES % (AUTO) 22.4 % (13-45); MEAN CORPUSCULAR HEMOGLOBIN 28.9 pg (27.0-33.4); MEAN CORPUSCULAR HGB CONC 32.1 g/dL (32.0-36.0); MEAN CORPUSCULAR VOLUME 90 fl (80-97); MONOCYTES % (AUTO) 7.7 % (3-13); PLATELET COUNT 221 10^3/uL (150-450); RED BLOOD COUNT 4.24 10^6/uL (3.72-5.28); RED CELL DISTRIBUTION WIDTH 14.6 % (11.5-14.0); TOTAL CELLS COUNTED % (AUTO) 100 %
[2017-08-06 00:30] LABS: ALANINE AMINOTRANSFERASE 58 U/L (9-52); ALBUMIN 4.2 g/dL (3.5-5.0); ALKALINE PHOSPHATASE 153 U/L (38-126); ANION GAP 10 (5-19); ASPARTATE AMINO TRANSFERASE 51 U/L (14-36); BILIRUBIN,DIRECT 0.4 mg/dL (0.0-0.4); BILIRUBIN,TOTAL 0.4 mg/dL (0.2-1.3); BLOOD UREA NITROGEN 56 mg/dL (7-20); CALCIUM 10.1 mg/dL (8.4-10.2); CARBON DIOXIDE 34 mmol/L (22-30); CHLORIDE 97 mmol/L (98-107); GLUCOSE 113 mg/dL (75-110); POTASSIUM 3.2 mmol/L (3.6-5.0); SODIUM 141.1 mmol/L (137-145); TOTAL PROTEIN 6.8 g/dL (6.3-8.2)
[2017-08-06 03:28] LABS: ALANINE AMINOTRANSFERASE 48 U/L (9-52); ALBUMIN 3.4 g/dL (3.5-5.0); ALKALINE PHOSPHATASE 126 U/L (38-126); ANION GAP 12 (5-19); ASPARTATE AMINO TRANSFERASE 42 U/L (14-36); BILIRUBIN,DIRECT 0.4 mg/dL (0.0-0.4); BILIRUBIN,TOTAL 0.4 mg/dL (0.2-1.3); BLOOD UREA NITROGEN 51 mg/dL (7-20); CARBON DIOXIDE 29 mmol/L (22-30); CHLORIDE 103 mmol/L (98-107); GLUCOSE 118 mg/dL (75-110); POTASSIUM 3.3 mmol/L (3.6-5.0); SODIUM 144.2 mmol/L (137-145)
[2017-08-06 03:44] VITALS: BP 125/77
== END 2017-08-06 03:44 | disposition home or self-care (01) ==
LOC: ER 20:50
DX: N17.9 Acute kidney failure, unspecified (principal); L03.116 Cellulitis of left lower limb; I48.91 Unspecified atrial fibrillation; I10 Essential (primary) hypertension; Z88.2 Allergy status to sulfonamides; Z86.718 Personal history of other venous thrombosis and embolism; Z86.711 Personal history of pulmonary embolism; Z79.02 Long term (current) use of antithrombotics/antiplatelets; I25.2 Old myocardial infarction; Z96.653 Presence of artificial knee joint, bilateral
CPT/HCPCS: 99283; 96365; 36415; 87040; 85025; 80053; J7030

== ENCOUNTER → 2018-01-09 | Outpatient (CLI) | payer MEDICARE ==
--- NOTE | 2018-01-09 14:35 | WOMENS IMAGING REPORT ---
EXAM DESCRIPTION: BONE DENSITY HIP/SPINE COMPLETED DATE/TIME: 01/09/2018 1:54 pm REASON FOR STUDY: BILATERAL SCREENING MAMMO/Z12.31 Z13.820 ENCOUNTER FOR SCREENING FOR OSTEOPOROSIS Z12.31 ENCNTR SCREEN MAMMOGRAM FOR MALIGNANT NEOPLASM OF CRISTOFER M81.0 AGE-RELATED OSTEOPOROSIS W/O CU RRENT PATHOLOGICAL FRAC COMPARISON: None. TECHNIQUE: Dual-Energy X-ray Absorptiometry (DEXA) of the AP Spine and Hip. LIMITATIONS: None. FINDINGS: LUMBAR SPINE: The bone mineral density (BMD) measured from L1-L4 in the AP projection correlates with a T-score of +0.1, which is normal as defined by the World Health Organization. HIP: The bone mineral density (BMD) measured in the left femoral neck at the hip correlates with a T-score of -1.2, which is osteopenic as defined by the World Health Organization. IMPRESSION: 1. LUMBAR SPINE: Normal 2. HIP: Osteopenic COMMENT: The World Health Organization defines low BMD as follows: T-score: Normal: Greater than -1.0 Osteopenia: Between -1.0 and -2.5 Osteoporosis: Less than -2.5 without fractures Established osteoporosis: Less than -2.5 with fractures In general, you may wish to consider: Diagnosis Treatment Follow-up DEXA Normal BMD Prevention 2-3 years Osteopenia Prevention/Therapy 1-2 years Osteoporosis Therapy Yearly TECHNICAL DOCUMENTATION: JOB ID: [id number] [employer]- All Rights Reserved Reading location - IP/workstation name: [email or web address]
--- NOTE | 2018-01-09 16:04 | WOMENS IMAGING REPORT ---
EXAM DESCRIPTION: BILAT SCREENING MAMMO W/CAD COMPLETED DATE/TIME: 01/09/2018 1:54 pm REASON FOR STUDY: BILATERAL SCREENING MAMMO/Z12.31 Z13.820 ENCOUNTER FOR SCREENING FOR OSTEOPOROSIS Z12.31 ENCNTR SCREEN MAMMOGRAM FOR MALIGNANT NEOPLASM OF CRISTOFER M81.0 AGE-RELATED OSTEOPOROSIS W/O CU RRENT PATHOLOGICAL FRAC COMPARISON: Baseline study TECHNIQUE: Standard craniocaudal and mediolateral oblique views of each breast recorded using digita l acquisition. LIMITATIONS: None. FINDINGS: Findings present which are benign by mammographic criteria. No suspicious masses, calcifi cations or architectural distortion. Pertinent benign findings: Benign bilateral breast parenchymal and vascular calcifications Read with the assistance of CAD. .[facility] - R2 Cenova Version 1.3 .[facility] - R2 Cenova Version 1.3 .[facility] - R2 Cenova Version 2.4 .[facility] - R2 Cenova Version 2.4 .[facility] - R2 [employer] Field Technician Version 9.2 Benign mammographic findings may include one or more of the following: Smooth masses, popcorn/rim/co arse calcifications, asymmetries, post-procedure changes, and lesions with long-standing stability. IMPRESSION: BENIGN MAMMOGRAPHIC FINDINGS. BIRADS 2 BREAST DENSITY: a. The breasts are almost entirely fatty. BIRAD: 2 BENIGN FINDING(S) RECOMMENDATION: ROUTINE SCREENING Please continue yearly bilateral screening mammography/tomosynthesis in December 2018 COMMENT: The patient has been notified of the results by letter per [place] requirements. Additional no tification policies are in place for contacting patient with suspicious or incomplete findings. Quality ID #[id number]: The [employer] recommends an annual screening mammogram for women aged 40 years or over. This facility utilizes a reminder system to ensure that all patients receive reminder letters, and/or direct phone calls for appointments. This includes reminders for routine scr eening mammograms, diagnostic mammograms, or other Breast Imaging Interventions when appropriate. Th is patient will be placed in the appropriate reminder system. The [employer] (ACR) has developed recommendations for screening MRI of the breast s in certain patient populations, to be used in conjunction with mammography. Breast MRI surveillanc e may be appropriate for women with more than 20% lifetime risk of developing breast cancer as deter mined by genetic testing, significant family history of the disease, or history of mantle radiation f or Hodgkins Disease. ACR Practice Guidelines 2008. TECHNICAL DOCUMENTATION: FINDING NUMBER: (1) ASSESSMENT: (1) JOB ID: [id number] [employer]- All Rights Reserved Reading location - IP/workstation name: [email or web address]
== END ==
LOC: WI 13:04
DX: Z12.31 Encounter for screening mammogram for malignant neoplasm of breast (principal); Z13.820 Encounter for screening for osteoporosis; M81.0 Age-related osteoporosis without current pathological fracture
CPT/HCPCS: 77067; 77080

== ENCOUNTER 2018-06-15 11:01 | Emergency (ER) | payer MEDICARE ==
--- NOTE | 2018-06-15 11:32 | ER Document Report ---
ED Medical Screen (RME) - General Chief Complaint: Leg Pain Stated Complaint: LEG PAIN Time Seen by Provider: 06/15/18 11:27 Primary Care Provider: CARMENCITA JIMENEZ MD [Primary Care Provider] - Follow up as needed Notes: Chief complaint: Left calf pain History of complain:( obtained from----patient) 68 years old female on Xarelto for DVT and PE, presents today with left calf pain and swelling. No difficulty in breathing. No chest pain. PHYSICAL EXAMINATION: GENERAL: Well-appearing, well-nourished and in no acute distress. Morbid obesity HEAD: Atraumatic, normocephalic. EYES: Pupils equal round and reactive to light, extraocular movements intact, conjunctiva are normal. ENT: Nares patent, oropharynx clear without exudates. Moist mucous membranes. NECK: Normal range of motion, supple without lymphadenopathy LUNGS: Breath sounds clear to auscultation bilaterally and equal. No wheezes rales or rhonchi ABDOMEN: Soft, nontender, nondistended abdomen. No guarding, no rebound. No masses appreciated. Examination of genitals-deferred Musculoskeletal: Normal range of motion, no pitting or edema. No cyanosis., Left calf tenderness noted on palpation Dictation was performed using [employer] voice recognition software TRAVEL OUTSIDE OF THE [place] IN LAST 30 DAYS: No - Related Data Allergies/Adverse Reactions: Sulfa (Sulfonamide Antibiotics) Allergy (Verified 06/15/18 11:03) Skin Redness BRAZIL NUT Allergy (Uncoded 06/15/18 11:03) Anaphylaxis Past Medical History - Social History Chew tobacco use (# tins/day): No Frequency of alcohol use: None Drug Abuse: None - Past Medical History Cardiac Medical History: Reports: Hx Atrial Fibrillation, Hx Heart Attack - "MILD" 8 YRS AGO, Hx Hypercholesterolemia, Hx Hypertension Denies: Hx Coronary Artery Disease Pulmonary Medical History: Reports: Hx Asthma - H/O CHILD- PRN ALBUTEROL Denies: Hx Bronchitis, Hx COPD, Hx Pneumonia Neurological Medical History: Denies: Hx Cerebrovascular Accident, Hx Seizures Renal/ Medical History: Denies: Hx Peritoneal Dialysis Musculoskeltal Medical History: Reports Hx Arthritis Past Surgical History: Reports: Hx Abdominal Surgery - stomach stapled, Hx Hysterectomy, Hx Orthopedic Surgery - shoulder left, bilateral tkr herniated disc in neck - Immunizations Hx Diphtheria, Pertussis, Tetanus Vaccination: No History of Influenza Vaccine for 01/2017 - 06/2017 Season: Yes Influenza Administration Date for 01/2017 - 06/2017 Season: 01/17/17 Physical Exam - Vital signs Vitals: Temp Pulse Resp BP Pulse Ox 98.2 F 77 18 122/56 L 92 06/15/18 11:07 06/15/18 11:07 06/15/18 11:07 06/15/18 11:07 06/15/18 11:07 Course - Vital Signs Vital signs: Temp Pulse Resp BP Pulse Ox 98.2 F 77 18 122/56 L 92 06/15/18 11:07 06/15/18 11:07 06/15/18 11:07 06/15/18 11:07 06/15/18 11:07 Doctor's Discharge - Discharge Referrals: CARMENCITA JIMENEZ MD [Primary Care Provider] - Follow up as needed
[2018-06-15 11:53] LABS: ABSOLUTE EOSINOPHILS # (AUTO) 0.2 10^3/uL (0.0-0.6); ABSOLUTE LYMPHOCYTES (AUTO) 3.5 10^3/uL (0.5-4.7); ABSOLUTE MONOCYTES (AUTO) 0.9 10^3/uL (0.1-1.4); ABSOLUTE NEUT (AUTO) 7.8 10^3/uL (1.7-8.2); BASOPHILS % (AUTO) 0.3 % (0-2); HEMATOCRIT 43.1 % (36.0-47.0); HEMOGLOBIN 14.1 g/dL (12.0-15.5); LYMPHOCYTES % (AUTO) 28.2 % (13-45); MEAN CORPUSCULAR HEMOGLOBIN 29.3 pg (27.0-33.4); MEAN CORPUSCULAR HGB CONC 32.8 g/dL (32.0-36.0); MEAN CORPUSCULAR VOLUME 89 fl (80-97); MONOCYTES % (AUTO) 7.4 % (3-13); PLATELET COUNT 215 10^3/uL (150-450); RED BLOOD COUNT 4.83 10^6/uL (3.72-5.28); RED CELL DISTRIBUTION WIDTH 14.4 % (11.5-14.0); SEGMENTED NEUTROPHILS % (AUTO) 62.1 % (42-78); TOTAL CELLS COUNTED % (AUTO) 100 %; WHITE BLOOD COUNT 12.5 10^3/uL (4.0-10.5)
[2018-06-15 11:59] LABS: INTERNATIONAL RATION (INR) 2.26
--- NOTE | 2018-06-15 12:03 | ER Document Report ---
ED General - General Chief Complaint: Leg Pain Stated Complaint: LEG PAIN Time Seen by Provider: 06/15/18 11:27 Primary Care Provider: CARMENCITA JIMENEZ MD [Primary Care Provider] - Follow up in 3-5 days Notes: Patient is a 68-year-old female who presents to the emergency department with a chief complaint of left leg discomfort. She states she started having her symptoms the past week. She also complains of chest discomfort, but denies pain. She says every time she takes a deep breath and she feels the discomfort. The discomfort is in the middle of her chest. She has history of a DVT and pulmonary emboli in the past. She also has atrial fibrillation and hypertension. Her current medications include Xarelto, Lasix, atorvastatin, aspirin, losartan/hydrochlorothiazide, and flecainide. She reports that she is taking her medication as prescribed. She denies any fever, injury, fall, altered mental status, nausea, diarrhea, or vomiting. TRAVEL OUTSIDE OF THE [place] IN LAST 30 DAYS: No - Related Data Allergies/Adverse Reactions: Sulfa (Sulfonamide Antibiotics) Allergy (Verified 06/15/18 11:03) Skin Redness BRAZIL NUT Allergy (Uncoded 06/15/18 11:03) Anaphylaxis Past Medical History - Social History Smoking Status: Unknown if Ever Smoked Chew tobacco use (# tins/day): No Frequency of alcohol use: None Drug Abuse: None Family History: Reviewed & Not Pertinent Patient has suicidal ideation: No Patient has homicidal ideation: No - Past Medical History Cardiac Medical History: Reports: Hx Atrial Fibrillation, Hx Heart Attack - "MILD" 8 YRS AGO, Hx Hypercholesterolemia, Hx Hypertension Denies: Hx Coronary Artery Disease Pulmonary Medical History: Reports: Hx Asthma - H/O CHILD- PRN ALBUTEROL Denies: Hx Bronchitis, Hx COPD, Hx Pneumonia Neurological Medical History: Denies: Hx Cerebrovascular Accident, Hx Seizures Renal/ Medical History: Denies: Hx Peritoneal Dialysis Musculoskeletal Medical History: Reports Hx Arthritis Past Surgical History: Reports: Hx Abdominal Surgery - stomach stapled, Hx Hysterectomy, Hx Orthopedic Surgery - shoulder left, bilateral tkr herniated disc in neck - Immunizations Hx Diphtheria, Pertussis, Tetanus Vaccination: No Hx Pneumococcal Vaccination: 04/18/15 Review of Systems - Review of Systems Notes: REVIEW OF SYSTEMS: CONSTITUTIONAL : Denies recent illness. Denies recent unintentional weight loss. Denies fever, chills, or sweats. EENT: Denies eye, ear, throat, or mouth pain, discharge, or symptoms. Denies nasal or sinus congestion. CARDIOVASCULAR: See HPI. RESPIRATORY: Denies shortness of breath, cough, congestion, difficulty breathing, or wheezing. GASTROINTESTINAL: Denies nausea, vomiting, and diarrhea. Denies abdominal pain. Denies constipation. GENITOURINARY: Denies difficulty urinating, burning, blood in urine, urgency or frequency. MUSCULOSKELETAL: See HPI. SKIN: Denies rash, itchiness, or lesions HEMATOLOGIC : Denies easy bruising or bleeding. LYMPHATIC: Denies swollen, painful, enlarged glands. NEUROLOGICAL: Denies no numbness or tingling denies weakness. Denies headache. Denies altered mental status. Denies alteration in speech. PSYCHIATRIC: Denies stress, anxiety, alteration in sleep patterns, or depression. All other systems reviewed and negative. Physical Exam - Vital signs Vitals: Temp Pulse Resp BP Pulse Ox 98.2 F 77 18 122/56 L 92 06/15/18 11:07 06/15/18 11:07 06/15/18 11:07 06/15/18 11:07 06/15/18 11:07 - Notes Notes: PHYSICAL EXAMINATION: GENERAL: Appears well, healthy, well-nourished, no acute distress. HEAD: Normocephalic, atraumatic. EYES: PERRL, conjunctiva normal, all extraocular movements intact, sclera nonicteric ENT: Moist mucous membranes. NECK: Supple, no noticeable swelling, redness, rash. Normal range of motion. LUNGS: Equal breath sounds bilaterally and clear to auscultation. No wheezes rales or rhonchi. CARDIOVASCULAR: S1-S2, regular rate, regular rhythm. Radial pulses 2+, normal. ABDOMEN: Normoactive bowel sounds. Soft, nontender, no guarding, no rebound tenderness, and no masses palpated. EXTREMITIES: Normal strength and range of motion, no pitting or edema. No cyanosis. NEUROLOGICAL: Moves all extremities upon command. Strength 5/5 in all extremities. PSYCH: Normal mood, normal affect. SKIN: Warm, dry. No rash, lesions, ulcerations noted. Normal skin turgor. Course - Re-evaluation Re-evalutation: Differential diagnosis includes DVT, pulmonary emboli, pneumonia, congestive heart failure. 02/28/19 14:17 Patient's venous Doppler study is negative for any DVT. Her labs are unremarkable. 06/15/18 14:28 Staff was having a hard time placing an IV. An ultrasound-guided IV was placed by myself. It is an 18-gauge in the right upper arm just above the antecubital area. 06/15/18 17:[address] of the chest is negative for a pulmonary embolism. She does have cholelithiasis noted on her CT. I discussed these findings with the rubi ent and she states, "maybe that is the reason why my stomach hurts sometimes when I eat." I discussed with her a low-fat diet to help with symptoms. She will have close follow-up with her primary care provider. Verbal discharge instructions were given to the patient. They verbalized understanding. They are stable for discharge. - Vital Signs Vital signs: Temp Pulse Resp BP Pulse Ox 98.2 F 77 12 143/70 H 98 06/15/18 11:07 06/15/18 11:07 06/15/18 18:02 06/15/18 18:02 06/15/18 18:02 - Laboratory Result Diagrams: 06/15/18 11:41 06/15/18 11:41 Laboratory results interpreted by me: 06/15/18 06/15/18 06/15/18 11:41 11:41 11:41 WBC 12.5 H RDW 14.4 H PT 26.0 H Potassium 3.5 L BUN 49 H Creatinine 1.63 H Est GFR ( Amer) 38 L Est GFR (Non-Af Amer) 31 L Glucose 139 H AST 54 H ALT 67 H - EKG Interpretation by Me Additional EKG results interpreted by me: 06/15/18 Sinus rhythm. Discharge - Discharge Clinical Impression: Chest discomfort, Swelling of left lower extremity Condition: Stable Disposition: HOME, SELF-CARE Additional Instructions: You were seen today in the emergency department for chest discomfort and left lower leg swelling. Your studies do not show any blood clot at this time. It did show that you had some gallstones in your gallbladder. Stick to a low-fat diet decrease the amount of pain you have when you eat. Please follow-up with your primary care doctor in the next few days. You have been given compression hose to help with the swelling in your legs. Wear them during the day when you are awake, and take them off every few hours to let her legs breathe. You do n ot need to wear them when you are sleeping. If you develop chest pain, shortness of breath, worsening leg swelling, or any symptoms that are worrisome to you, please return to the emergency department. Referrals: CARMENCITA JIMENEZ MD [Primary Care Provider] - Follow up in 3-5 days
[2018-06-15 12:18] LABS: ALANINE AMINOTRANSFERASE 67 U/L (9-52); ALBUMIN 3.8 g/dL (3.5-5.0); ALKALINE PHOSPHATASE 115 U/L (38-126); ANION GAP 10 (5-19); ASPARTATE AMINO TRANSFERASE 54 U/L (14-36); BILIRUBIN,DIRECT 0.2 mg/dL (0.0-0.4); BILIRUBIN,TOTAL 0.4 mg/dL (0.2-1.3); BLOOD UREA NITROGEN 49 mg/dL (7-20); CALCIUM 9.1 mg/dL (8.4-10.2); CARBON DIOXIDE 30 mmol/L (22-30); CHLORIDE 103 mmol/L (98-107); GLUCOSE 139 mg/dL (75-110); POTASSIUM 3.5 mmol/L (3.6-5.0); SODIUM 142.5 mmol/L (137-145); TOTAL PROTEIN 6.6 g/dL (6.3-8.2)
[2018-06-15 12:20] LABS: D-DIMER < 0.27 ug/mL (0.00-0.50)
--- NOTE | 2018-06-15 13:06 | XCELERA REPORT ---
[address] [address] Lower Extremity Venous Evaluation Procedure: Color flow and duplex imaging of the veins of the left lower extremity as well as the right Common Femoral vein. Right Sided Venous Evaluation The right common femoral vein is fully compressible. Spontaneous and phasic flow is present in the right common femoral vein. Left Sided Venous Evaluation Challenging to visualize Peroneal vein, due to body habitus, weight of 310 pounds. Normal vessel filling wall to wall, compression and augmentation as well as Colour flow down to the infrageniculate veins. Interpretation Summary No duplex evidence of DVT or obstruction in the left lower extremity nor in the right Common Femoral vein. Name: AMADO SMITH Age: 68 yrs Gender: Female : 1950 Patient Status: Preadmit Patient Location: ER Study Date: 06/15/2018 11:56 AM Reason For Study: Left leg, calf swelling and pain. History of DVT Ordering Physician: LENNIE JOHN Performed By: Clementine Lorenz : LENNIE JOHN > Janes Jaramillo
--- NOTE | 2018-06-15 17:23 | RADIOLOGY REPORT (SQ) ---
EXAM DESCRIPTION: CTA CHEST COMPLETED DATE/TIME: 06/15/2018 5:06 pm REASON FOR STUDY: r/o Pulmonary emboli COMPARISON: None. TECHNIQUE: CT scan of the chest performed using helical scanning technique with dynamic intravenous contrast injection. Images reviewed with lung, soft tissue and bone windows. Reconstructed coronal and sagittal MPR images reviewed. Additional 3 dimensional post-processing performed to develop Maximal Intensity Projection images (AL P). All images stored on PACS. All CT scanners at this facility use dose modulation, iterative reconstruction, and/or weight based d osing when appropriate to reduce radiation dose to as low as reasonably achievable (ALARA). [facility]: Dose Right [facility]: CareDose [facility]: Dose Right [facility]: Teradose 4D [facility]: [employer] CONTRAST TYPE AND DOSE: contrast/concentration: Isovue 300.00 mg/ml; Total Contrast Delivered: 90.0 ml; Total Saline Delivered: 80.0 ml Contrast bolus optimized for the pulmonary arteries. Not diagnostic for the aorta. RENAL FUNCTION: BUN 49 creatinine 1.63 RADIATION DOSE: CT Rad equipment meets quality standard of care and radiation dose reduction techniq ues were employed. CTDIvol: 39.7 - 47.3 mGy. DLP: 1838 mGy-cm. . LIMITATIONS: Sub optimal opacification of the pulmonary arteries. FINDINGS: LUNGS AND PLEURA: No masses, infiltrates, or pneumothorax. No pleural effusions or pleura l calcifications. AORTA AND GREAT VESSELS: No aneurysm. Contrast bolus not optimized for the aorta. HEART: No pericardial effusion. Moderate to marked coronary artery calcifications. PULMONARY ARTERIES: No obvious emboli visualized in the main pulmonary arteries or the segmental bran ches. HILAR AND MEDIASTINAL STRUCTURES: No identified masses or abnormal nodes. HARDWARE: None in the chest. UPPER ABDOMEN: Cholelithiasis. THYROID AND OTHER SOFT TISSUES: No masses. No adenopathy. BONES: No acute or significant finding. 3D MIPS: Confirm above findings. OTHER: No other significant finding. IMPRESSION: Slightly limited study. No pulmonary emboli are appreciated. Cholelithiasis. COMMENT: Quality ID # [id number]: Final reports with documentation of one or more dose reduction techniques (e.g., Automated exposure control, adjustment of the mA and/or kV according to patient size, use of iterative reconstruction technique) TECHNICAL DOCUMENTATION: JOB ID: [id number] [employer]- All Rights Reserved Reading location - IP/workstation name: [email or web address]
[2018-06-15 18:14] VITALS: BP 143/70
--- NOTE | 2018-06-15 22:05 | EKG REPORT ---
SEVERITY:- ABNORMAL ECG - SINUS RHYTHM LEFT AXIS DEVIATION LEFT VENTRICULAR HYPERTROPHY : Confirmed by: Carolina Jaramillo 15-Jun-2018 22:05:11
== END 2018-06-15 18:20 | disposition home or self-care (01) ==
LOC: ER 11:01
DX: R07.9 Chest pain, unspecified (principal); M79.89 Other specified soft tissue disorders; M79.605 Pain in left leg; I48.91 Unspecified atrial fibrillation; E78.00 Pure hypercholesterolemia, unspecified; I10 Essential (primary) hypertension; Z90.710 Acquired absence of both cervix and uterus; Z88.2 Allergy status to sulfonamides; I25.2 Old myocardial infarction
CPT/HCPCS: 36415; 71275; 80053; 82550; 82553; 84484; 85025; 85379; 85610; 93005; 93010; 93971; 99284